=== PATIENT | female | born 1945 | race Caucasian/White ===

== ENCOUNTER 2016-10-24 12:30 | Day surgery (SDC) | payer OTHER ==
[~2016-10-24] VITALS: Ht 149.9 cm; Wt 46.0 kg
[~2016-10-24 12:30] MED LIST: BRILINTA90 MG PO; LO-DOSE ASPIRIN81 M2 PO; ROSUVASTATIN CA20 MG PO; TOPROL XL25 MG PO; ZESTRIL2.5 MG PO
[2016-10-24 13:14] VITALS: BP 96/64
[2016-10-24 17:40] VITALS: BP 109/56
== END 2016-10-24 18:05 | disposition home or self-care (01) ==
LOC: SDC 12:30
DX: H33.012 Retinal detachment with single break, left eye (principal); I10 Essential (primary) hypertension; I25.10 Atherosclerotic heart disease of native coronary artery without angina pectoris; Z95.5 Presence of coronary angioplasty implant and graft; F17.210 Nicotine dependence, cigarettes, uncomplicated; Z79.82 Long term (current) use of aspirin
CPT/HCPCS: 93005; J0131; J0690; J1170; J2405